=== PATIENT | male | born 2000 | race Caucasian/White ===

== ENCOUNTER 2023-10-27 21:31 | Emergency (ER) | payer BC ==
[~2023-10-27] VITALS: Ht 167.6 cm; Wt 77.1 kg
[2023-10-27] MEDS ORDERED: IBUPROFEN 600 MG TAB ONE (21:50)
[2023-10-27] MEDS ORDERED: ACETAMINOPHEN 325 MG TAB ONE (21:50)
[2023-10-27] MEDS: IBUPROFEN 600 MG TAB PO STA (22:01)
[2023-10-27] MEDS: ACETAMINOPHEN 325 MG TAB PO STA (22:01)
[2023-10-27] MEDS ORDERED: PREDNISONE20 MG PO (22:05)
[2023-10-27] MEDS ORDERED: AZITHROMYCIN250 MG PO (22:05)
[2023-10-27 22:16] VITALS: O2SAT 99
[2023-10-31] MEDS ORDERED: CLARITIN-D 241 EACH PO (12:36)
[2023-10-31] MEDS ORDERED: FLONASE ALLERG9.9 ML INH (12:36)
== END 2023-10-27 22:20 | disposition home or self-care (01) ==
LOC: FSED 21:35
DX: R50.9 Fever, unspecified (principal); J02.9 Acute pharyngitis, unspecified; R53.81 Other malaise
CPT/HCPCS: 83518; 87400; 99283